=== PATIENT | female | born 1995 | race Caucasian/White ===

== ENCOUNTER 2018-07-18 02:40 | Emergency (ER) | payer OTHER, SELFPAY ==
--- NOTE | 2018-07-18 02:42 | ED.WOUNDLAC ---
HPI - Wound/Laceration General Chief Complaint: Wound/Laceration Stated Complaint: laceration to left wrist Time Seen by Provider: 07/18/18 02:42 Source: patient Mode of arrival: ambulatory Limitations: no limitations History of Present Illness HPI narrative: 23-year-old female here for evaluation cut to her left wrist. Patient states that just prior to arrival she was working some wood with a knife when it slipped and cut her left wrist. Has not done anything for prior to arrival. States she is up-to-date on her tetanus. Related Data Home Medications Medication Instructions Recorded Confirmed trazodone 50 mg PO HS #0 03/02/17 Wellbutrin XL 07/18/18 Previous Rx's Medication Instructions Recorded bupropion HCl 100 mg PO TID #90 tab 12/20/16 hydroxyzine pamoate [Vistaril] 25 mg PO Q8HP PRN #30 cap 12/20/16 Allergies Allergy/AdvReac Type Severity Reaction Status Date / Time lamotrigine [From LAMICTAL] Allergy Intermediate RASH Verified 07/18/18 02:53 strawberry [STRAWBERRY] Allergy Mild HIVES Verified 07/18/18 02:53 hydrocodone [HYDROCODONE] Allergy Unknown Verified 07/18/18 02:53 venom-honey bee Allergy Unknown CHILD Verified 07/18/18 02:53 [BEE VENOM (HONEY BEE)] REACTION, NOT SURE unknown antipsychotic med Allergy Severe not sure Uncoded 07/18/18 02:53 Review of Systems Constitutional Denies fever(s) Musculoskeletal Comments: No left hand left wrist or left elbow pain Integumentary/Breasts Comments: Cut to her left wrist Neurologic Comments: No numbness or tingling left wrist Hematologic/Lymphatic Denies easy bleeding and Denies easy bruising [facility] Medical History PCOS (polycystic ovarian syndrome) (Acute) Surgical History No pertinent past surgical history (Acute) Family History Father ADHD (attention deficit hyperactivity disorder) Mother Asthma Migraines Depression Grandmother Paranoid schizophrenia Social History Smoking Status: Current every day smoker Exam Initial Vital Signs Initial Vital Signs: Vital Signs Temperature 97.8 F 07/18/18 02:49 Pulse Rate 92 H 07/18/18 02:49 Respiratory Rate 18 07/18/18 02:49 Blood Pressure 130/74 07/18/18 02:49 Pulse Oximetry 100 07/18/18 02:49 Const General: cooperative, in distress and anxious Orientation: alert, awake and oriented x3 HENMT Head: normal to inspection and normocephalic Resp Effort & Inspection: normal respiratory effort Cardio Pulses: radial pulses present on the left Skin Other: Patient with a 0.25-0.5 cm cut to the volar aspect of her left wrist just proximal to the joint. No active bleeding. Neuro General: alert, awake and oriented x3 Sensory Exam: no sensory deficits noted Extrem Other: Left hand, left wrist full range of motion Psych Appearance: grossly normal and well kempt Procedures Laceration Repair Laceration 1: Site: upper extremity Side (If applicable): left Size (cm): 0.5 Description: linear Depth: simple, single layer Pre-repair: wound explored, irrigated extensively and deep structures intact Skin layer closed with: other (Dermabond and Steri-Strips) Course Vital Signs - 8 hr 07/18/18 02:49 Temperature 97.8 F Pulse Rate 92 H Respiratory Rate 18 Blood Pressure 130/74 Pulse Oximetry 100 MDM - Wound/Laceration MDM Narrative Medical decision making narrative: Patient is neurovascularly intact. The cut to the volar aspect of her wrist is superficial. No active bleeding. We did discuss options to include stitches versus Dermabond and Steri-Strips. We opted for Dermabond and Steri-Strips. She was given care instructions. She was given return precautions. No indication for antibiotics. Will hold on x-rays. Patient expressed understanding and agreement with plan. Discharge Plan Departure Patient Disposition: Home Clinical Impression: Laceration Instructions: DI for Laceration Repair Steri-Strips, DI for Laceration Repair With Dermabond Activity Restrictions/Additional Instructions: Keep the area clean and dry however you can shower and wash her hands like normal. Return to the emergency department for any new or worsening symptoms Prescriptions: No Action bupropion HCl 100 MG tablet 100 mg PO TID Qty: 90 RF: 2 hydroxyzine pamoate [Vistaril] 25 MG capsule 25 mg PO Q8HP PRNQty: 30 RF: 1 trazodone 50 MG tablet 50 mg PO HS Qty: 0 RF: 0 Wellbutrin XL RF: 0
[2018-07-18 02:49] VITALS: BP 130/74; PULSE 92; RESP 18; TEMP 36.6; O2SAT 100; BMI 21.1
--- NOTE | 2018-07-18 03:09 | PC.NURSE ---
laceration repaired by Dr Trujillo with dermabond and steristrips and pt tolerated well.
== END 2018-07-18 03:09 | disposition home or self-care (01) ==
PROVIDERS: Emergency Provider Emergency Medicine; Family Provider Family Medicine
DX: S61.512A Laceration without foreign body of left wrist, initial encounter (principal); W26.0XXA Contact with knife, initial encounter
CPT/HCPCS: 12001; 99282; 99283

== ENCOUNTER 2018-07-18 15:09 | Emergency (ER) | payer SELFPAY ==
[2018-07-18 15:15] VITALS: BP 115/78; PULSE 102; RESP 17; TEMP 36.8; O2SAT 98; BMI 21.9
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
--- NOTE | 2018-07-18 16:06 | PC.NURSE ---
patient came out of her room saying I have to go now We tried to get her to sign but she wouldn't wait.
== END 2018-07-18 16:10 | disposition left against medical advice (07) ==
PROVIDERS: Emergency Provider Internal Medicine; Family Provider Family Medicine
DX: S61.512A Laceration without foreign body of left wrist, initial encounter (principal)
CPT/HCPCS: 99283

== ENCOUNTER → 2018-09-23 16:44 | Outpatient (CLI) | payer OTHER, SELFPAY | PROVIDERS: Family Provider Family Medicine; Visit Provider Physician Assistant | DX: N39.0 Urinary tract infection, site not specified (principal) | CPT/HCPCS: 87077; 87086; 87186 ==

== ENCOUNTER 2019-08-24 18:46 | Emergency (ER) | payer OTHER, SELFPAY ==
[2019-08-24 18:48] VITALS: BP 120/65; PULSE 119; RESP 18; TEMP 37.2; O2SAT 100
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
== END 2019-08-24 19:45 | disposition home or self-care (01) ==
PROVIDERS: Emergency Provider Emergency Medicine; Family Provider Family Medicine
CPT/HCPCS: 99281

== ENCOUNTER 2020-05-09 09:34 | Emergency (ER) | payer OTHER, SELFPAY ==
[2020-05-09 09:38] VITALS: BP 122/79; PULSE 113; RESP 15; TEMP 36.6; O2SAT 97; BMI 21.1
--- NOTE | 2020-05-09 09:42 | ED_ITS ---
HPI - General Adult General Chief complaint: Skin/Abscess/Foreign Body Stated complaint: Found lump on left breast and few more concerns Time Seen by Provider: 05/09/20 09:36 Source: patient Mode of arrival: Ambulatory Limitations: no limitations History of Present Illness HPI narrative: 24-year-old female smoker with history of asthma presents with a few complaints including a painless lump she just noticed on her left breast as well as a painless lump on the left side of her neck. Additionally, she states she became quite anxious a few days ago when she had the beginnings of an asthma attack and did not have her inhaler so she requests a refill on this. Patient denies any recent street drugs but does have a history of smoking methamphetamines. She does sh she denies any skin change overlying the lump in her left breast. She denies any nipple discharge or injury. Ave her head and wears awake and has some areas of irritated skin that of cause scabs that she is picking at that on the left side of her scalp. She denies any ear pain or sore throat. She has had no fever or chills. Onset (ago): day(s) Location: head and chest Radiation: non-radiation Severity: mild Relieving factors: none Exacerbating factors: none Associated symptoms: denies other symptoms Treatments prior to arrival: none Related Data Previous Rx's Medication Instructions Recorded albuterol sulfate 90 mcg/actuation 2 puff INHALATION Q6H PRN #8 gram 09/23/18 aerosol inhaler beclomethasone dipropionate 80 1 puff INHALATION BID #10.6 gram 09/23/18 mcg/actuation HFA breath activated aerosol inhalational spacing device #1 each 09/23/18 albuterol sulfate 2 inh INHALATION Q4H PRN #1 each 05/09/20 doxycycline hyclate 100 mg PO BID #20 tab 05/09/20 Allergies Allergy/AdvReac Type Severity Reaction Status Date / Time lamotrigine [From LAMICTAL] Allergy Intermediate RASH Verified 05/09/20 10:00 strawberry [STRAWBERRY] Allergy Mild HIVES Verified 05/09/20 10:00 hydrocodone [HYDROCODONE] Allergy Unknown Verified 05/09/20 10:00 venom-honey bee Allergy Unknown CHILD Verified 05/09/20 10:00 [BEE VENOM (HONEY BEE)] REACTION, NOT SURE unknown antipsychotic med Allergy Severe not sure Uncoded 07/18/18 15:15 Review of Systems Constitutional Constitutional: Denies chills, Denies fatigue, Denies fever(s), Denies frequent falls, Denies lethargy and Denies weakness Eyes Eyes: Denies change in vision, Denies eye discharge, Denies irritation and Denies loss of vision ENT Ears, Nose, Mouth, and Throat: Denies change in voice, Denies dizziness, Denies neck pain, Denies sore throat and Denies throat swelling Comments: lump on neck Cardiovascular Cardiovascular: Denies chest pain, Denies irregular heart rhythm, Denies lightheadedness, Denies palpitations, Denies dyspnea, Denies dyspnea on exertion and Denies orthopnea Respiratory Respiratory: Denies cough, Denies dyspnea, Denies dyspnea on exertion and Denies wheezing Gastrointestinal Gastrointestinal: Denies abdominal pain, Denies change in bowel habits, Denies diarrhea, Denies nausea and Denies vomiting Musculoskeletal Musculoskeletal: Denies neck pain and Denies numbness Integumentary/Breasts Skin/Breast: Reports breast mass, Denies pruritus, Denies erythema, Denies rash and Denies wounds Neurologic Neurologic: Denies behavioral changes, Denies confusion, Denies dizziness, Denies frequent falls, Denies loss of vision, Denies numbness and Denies weakness Psychiatric Psychiatric: Denies anxiety, Denies behavioral changes, Denies confusion, Denies depression, Denies homicidal ideation and Denies suicidal ideation Endocrine Endocrine: Denies fatigue, Denies flushing and Denies palpitations Hematologic/Lymphatic Hematologic/Lymphatic: Denies easy bruising Allergic/Immunologic Allergic/Immunologic: Denies urticaria, Denies throat swelling and Denies wheezing Patient History Medical History PCOS (polycystic ovarian syndrome) (Acute) Surgical History No pertinent past surgical history (Acute) Family History Father ADHD (attention deficit hyperactivity disorder) Mother Asthma Migraines Depression Grandmother Paranoid schizophrenia Social History Smoking Status: Current every day smoker Smoking Status: Current every day smoker alcohol intake frequency: a few times a week Substance Use Type: marijuana Exam Narrative Exam Narrative: GENERAL: [24] year old patient appears stated age. Well- nourished, well-developed patient, in mild distress. HEAD: Atraumatic. Normocephalic. Shaves head, few excoriations noted, on left side of scalp. No drainage. No induration EYES: Pupils equal round and reactive. Extraocular motions intact. No scleral icterus. No injection or drainage. ENT: Nose without bleeding, purulent drainage. Throat without erythema, tonsillar hypertrophy or exudate. Airway patent. NECK: Trachea midline. Small freely moveable left sided posterior cervical node. No erythema, no induration or fluctuance. BREAST: Examined with patient permission and female nurse director of spa and guest experience at the bedside. Small freely moveable lump inferior and lateral to areola. No nipple drainage or skin change CARDIOVASCULAR: Regular rate and rhythm without murmurs, gallops, or rubs. RESPIRATORY: Clear to auscultation. Breath sounds equal bilaterally. No wheezes, rales, or rhonchi. GASTROINTESTINAL: Abdomen soft, non-tender, nondistended. EXTREMITIES: No edema or joint tenderness. BACK: Nontender without deformity or crepitance. No flank tenderness. NEURO: AOx3. SKIN: No rash or erythema of visible areas Course Course Course Narrative: likely reactive lymphadenopathy from mild scalp folliculitis, other considerations include infected node, lymphoma or other. Extensive discussion with patient regadring need for follow up and establishing with PCP to pursue mammogram etc. Return precautions given. Questions answered to her apparent satisfaction. Discharge Plan Departure Patient Disposition: Home Clinical Impression: Breast lump in female, Folliculitis Discharge Date/Time: 05/09/20 10:02 Instructions: Fibrocystic Breast Changes: Lumps That Are Normal, DI for Breast Mass -- Uncertain Cause Activity Restrictions/Additional Instructions: *You have been diagnosed with [mild scalp folliculitis with associated posterior cervical lymphadenopathy, nontender left breast lump] *What to do: *Take medications as directed: electronically transmitted to [facility] at your request *Follow up with your primary care provider in 2-3 days, call for an appointment. Let them know you were seen in the Emergency Department and that we ask that you be seen in follow up *Return to ER if you should have any new, worsening or concerning symptoms Prescriptions: New doxycycline hyclate 100 mg tablet 100 mg PO BID Qty: 20 RF: 0 albuterol sulfate 90 mcg/actuation aerosol powdr breath activated 2 inh INHALATION Q4H PRN (Reason: shortness of breath or wheezing) Qty: 1 RF: 0 No Action albuterol sulfate [Ventolin HFA] 90 mcg/actuation HFA aerosol inhaler 2 puff INHALATION Q6H PRN (Reason: shortness of breath or wheezing) Qty: 8 RF: 2 (DME) inhalational spacing device [Aerochamber Plus Flow-Vu] spacer See Dose Instructions .ROUTE .MEDSUPPLY Qty: 1 RF: 0 beclomethasone dipropionate [Qvar RediHaler] 80 mcg/actuation HFA aerosol breath activated 1 puff INHALATION BID Qty: 10.6 RF: 0 Referrals: [facility] [Outside]
== END 2020-05-09 10:02 | disposition home or self-care (01) ==
PROVIDERS: Emergency Provider Emergency Medicine; Family Provider Family Medicine; Referring Provider Emergency Medicine
DX: N63.0 Unspecified lump in unspecified breast (principal); L73.9 Follicular disorder, unspecified
CPT/HCPCS: 99281

== ENCOUNTER 2020-05-23 23:59 | Emergency (ER) | payer OTHER, SELFPAY ==
[2020-05-24 00:05] VITALS: BP 128/61; PULSE 119; RESP 22; TEMP 36.9; O2SAT 98; BMI 21.9
--- NOTE | 2020-05-24 00:14 | ED.ABDPAIN ---
HPI - Abdominal Pain General Chief Complaint: Abdominal Pain Stated Complaint: ate bad food/thinks has worms Time Seen by Provider: 05/23/20 23:59 Source: patient Mode of arrival: Ambulatory Limitations: no limitations History of Present Illness HPI narrative: 24F smoker with history of smoking marijuana presents with the chief complaint of worms in her stool. She states she has been constipated lately and had a BM yesterday in an outhouse, but finally took a shit in a real toilet today at the local grocery store and states she saw worms in it. She states she can feel them wiggling in her belly and has been eating pumpkin seeds to make them come out. She denies runny nose, sore throat or fever. She states she frequently as a mild cough because of smoking marijuana. She denies any changes in her medication or diet but is concerned she may have eaten something given the presence of worms. She denies any blood in her stool. She states that she was at an outside facility a few days ago but is unclear about what they did or why she was there. She denies provocation or palliation of her abdominal discomfort but states she can feel it moving around and is convinced that is the worms. She denies vaginal bleeding or discharge. MD complaint: abdominal pain Onset (ago): day(s) Pain Consistency: intermittent Location: diffuse Severity: mild Quality: cramping Radiation: none Relieving factors: nothing Exacerbating factors: nothing Associated symptoms: denies other symptoms Related Data Previous Rx's Medication Instructions Recorded albuterol sulfate 90 mcg/actuation 2 puff INHALATION Q6H PRN #8 gram 09/23/18 aerosol inhaler beclomethasone dipropionate 80 1 puff INHALATION BID #10.6 gram 09/23/18 mcg/actuation HFA breath activated aerosol inhalational spacing device #1 each 09/23/18 albuterol sulfate 2 inh INHALATION Q4H PRN #1 each 05/09/20 doxycycline hyclate 100 mg PO BID #20 tab 05/09/20 albendazole 400 mg PO BID 5 Days #20 tab 05/24/20 Allergies Allergy/AdvReac Type Severity Reaction Status Date / Time lamotrigine [From LAMICTAL] Allergy Intermediate RASH Verified 05/09/20 10:00 strawberry [STRAWBERRY] Allergy Mild HIVES Verified 05/09/20 10:00 hydrocodone [HYDROCODONE] Allergy Unknown Verified 05/09/20 10:00 venom-honey bee Allergy Unknown CHILD Verified 05/09/20 10:00 [BEE VENOM (HONEY BEE)] REACTION, NOT SURE unknown antipsychotic med Allergy Severe not sure Uncoded 07/18/18 15:15 Review of Systems Constitutional Constitutional: Denies chills, Denies fatigue, Denies fever(s), Denies frequent falls, Denies lethargy and Denies weakness Eyes Eyes: Denies change in vision, Denies eye discharge, Denies irritation and Denies loss of vision ENT Ears, Nose, Mouth, and Throat: Denies change in voice, Denies dizziness, Denies neck pain, Denies sore throat and Denies throat swelling Cardiovascular Cardiovascular: Denies chest pain, Denies irregular heart rhythm, Denies lightheadedness, Denies palpitations, Denies dyspnea, Denies dyspnea on exertion and Denies orthopnea Respiratory Respiratory: Denies cough, Denies dyspnea, Denies dyspnea on exertion and Denies wheezing Gastrointestinal Gastrointestinal: Reports abdominal pain, Denies change in bowel habits, Denies diarrhea, Denies nausea and Denies vomiting Comments: abnormal stool Musculoskeletal Musculoskeletal: Denies neck pain and Denies numbness Integumentary/Breasts Skin/Breast: Denies pruritus, Denies erythema, Denies rash and Denies wounds Neurologic Neurologic: Denies behavioral changes, Denies confusion, Denies dizziness, Denies frequent falls, Denies loss of vision, Denies numbness and Denies weakness Psychiatric Psychiatric: Denies anxiety, Denies behavioral changes, Denies confusion, Denies depression, Denies homicidal ideation and Denies suicidal ideation Endocrine Endocrine: Denies fatigue, Denies flushing and Denies palpitations Hematologic/Lymphatic Hematologic/Lymphatic: Denies easy bruising Allergic/Immunologic Allergic/Immunologic: Denies urticaria, Denies throat swelling and Denies wheezing Patient History Medical History (Updated 05/24/20 @ 02:48 by Dc Gotti DO) PCOS (polycystic ovarian syndrome) (Acute) Surgical History No pertinent past surgical history (Acute) Family History Father ADHD (attention deficit hyperactivity disorder) Mother Asthma Migraines Depression Grandmother Paranoid schizophrenia Social History Smoking Status: Current every day smoker Smoking Status: Current every day smoker alcohol intake frequency: a few times a week Substance Use Type: marijuana Exam Narrative Exam Narrative: GENERAL: [24] year old patient appears stated age. Well-nourished, well-developed patient, in mild distress. HEAD: Atraumatic. Normocephalic. EYES: Pupils equal round and reactive. Extraocular motions intact. No scleral icterus. No injection or drainage. ENT: Nose without bleeding, purulent drainage. Throat without erythema, tonsillar hypertrophy or exudate. Airway patent. NECK: Trachea midline. Non tender CARDIOVASCULAR: tachycardic but regular rhythm without murmurs, gallops, or rubs. RESPIRATORY: Clear to auscultation. Breath sounds equal bilaterally. No wheezes, rales, or rhonchi. GASTROINTESTINAL: Abdomen soft, non-tender, nondistended. EXTREMITIES: No edema or joint tenderness. BACK: Nontender without deformity or crepitance. No flank tenderness. NEURO: AOx3. SKIN: No rash or erythema of visible areas Initial Vital Signs Initial Vital Signs: Vital Signs Temperature 98.4 F 05/24/20 00:05 Pulse Rate 119 H 05/24/20 00:05 Respiratory Rate 22 05/24/20 00:05 Blood Pressure 128/61 05/24/20 00:05 Pulse Oximetry 98 05/24/20 00:05 Course Course Course Narrative: patient with reassuring exam. SHe was given multiple opportunities, but was unable to provide a stool sample. Her vitals improved and HR dropped down to 80s/90s. Orders Ordered: ED Orders 05/24/20 02:00 Urine Drug Screen, Rapid Stat Vital Signs Vital signs: Vital Signs - 8 hr 05/24/20 00:05 05/24/20 03:23 Temperature 98.4 F Pulse Rate 119 H 94 H Respiratory Rate 22 16 Blood Pressure 128/61 103/65 Pulse Oximetry 98 100 MDM - Abdominal Pain Lab Data Labs: Lab Results 05/24/20 Range/Units 02:00 U Opiates 300ng/mL cut Positive H (Negative) Ur Oxycodone Screen Negative (Negative) Urine Methadone Screen Negative (Negative) Ur Barbiturates Screen Negative (Negative) U Tricyclic Antidepress Negative (Negative) Ur Phencyclidine Scrn Negative (Negative) Ur Amphetamines Screen Positive H (Negative) U Methamphetamines Scrn Positive H (Negative) Ur MDMA Scrn (Ecstasy) Negative (Negative) U Benzodiazepines Scrn Negative (Negative) Urine Cocaine Screen Negative (Negative) U Marijuana (THC) Screen Positive H (Negative) Point of care testing: Point of Care Testing Test Results Negative Urine Dip Bedside Urine Glucose Negative Bedside Urine Bilirubin - Negative Bedside Urine Ketone - Negative Urine Specific [place] 1.030 Bedside Urine Occult Blood - Negative Bedside Urine pH 6 Bedside Urine Protein +/- 15 Bedside Urine Nitrite - Negative Bedside Urine Leukocytes - Negative Esterase Discharge Plan Departure Patient Disposition: Home Clinical Impression: Intestinal worms Discharge Date/Time: 05/24/20 03:25 Instructions: Parasites, Intestinal (Alternative Therapy) Activity Restrictions/Additional Instructions: *You have been diagnosed with [abnormal stools, possible intestinal worms based on your report] *What to do: *Take medications as directed: Prescription sent to [facility] at your request *Follow up with your primary care provider in 2-3 days, call for an appointment. Let them know you were seen in the Emergency Department and that we ask that you be seen in follow up *Return to ER if you should have any new, worsening or concerning symptoms, such as [ ] Prescriptions: New albendazole 200 mg tablet 400 mg PO BID 5 Days Qty: 20 RF: 0 No Action albuterol sulfate [Ventolin HFA] 90 mcg/actuation HFA aerosol inhaler 2 puff INHALATION Q6H PRN (Reason: shortness of breath or wheezing) Qty: 8 RF: 2 (DME) inhalational spacing device [Aerochamber Plus Flow-Vu] spacer See Dose Instructions .ROUTE .MEDSUPPLY Qty: 1 RF: 0 beclomethasone dipropionate [Qvar RediHaler] 80 mcg/actuation HFA aerosol breath activated 1 puff INHALATION BID Qty: 10.6 RF: 0 doxycycline hyclate 100 mg tablet 100 mg PO BID Qty: 20 RF: 0 albuterol sulfate 90 mcg/actuation aerosol powdr breath activated 2 inh INHALATION Q4H PRN (Reason: shortness of breath or wheezing) Qty: 1 RF: 0
[2020-05-24 02:12] LABS: UR Morphine/Opiate cutoff 300 Positive (Negative); Ur Creatinine Normal (Normal); Ur Specific Gravity Normal (Normal); Urine Amphetamines Positive (Negative); Urine Barbiturates Negative (Negative); Urine Benzodiazepines Negative (Negative); Urine Cocaine Negative (Negative); Urine MDMA Negative (Negative); Urine Methadone Negative (Negative); Urine Methamphetamines Positive (Negative); Urine Oxycodone Negative (Negative); Urine Phencyclidine Negative (Negative); Urine Tetrahydrocannabinol Positive (Negative); Urine Tricyclic Antidepressant Negative (Negative); Urine pH Normal (Normal)
[2020-05-24 03:23] VITALS: BP 103/65; PULSE 94; RESP 16; O2SAT 100
== END 2020-05-24 03:25 | disposition home or self-care (01) ==
PROVIDERS: Emergency Provider Emergency Medicine; Family Provider Family Medicine
DX: B82.0 Intestinal helminthiasis, unspecified (principal); R10.9 Unspecified abdominal pain
CPT/HCPCS: 80305; 81003; 81025; 99282

== ENCOUNTER 2020-11-09 16:38 | Emergency (ER) | payer OTHER, MEDICAID, SELFPAY ==
[2020-11-09 16:48] VITALS: BP 141/106; PULSE 109; RESP 22; TEMP 37.3; O2SAT 100
--- NOTE | 2020-11-09 20:22 | ED.NAVMDI ---
HPI - Nausea/Vomiting/Diarrhea General Chief complaint: Nausea/Vomiting/Diarrhea Stated complaint: Thinks Tape Worm Time Seen by Provider: 11/09/20 18:10 Source: patient Mode of arrival: Ambulatory Limitations: no limitations History of Present Illness HPI Narrative: Patient is a 25-year-old female here for evaluation of multiple complaints. She initially states that she is here because over the past 24 hours she thought that she vomited up a larva. She has not had any diarrhea. There has been no recent camping or drinking untreated water. She also describes areas where she has ?pus? coming out of her body with both recent location behind her left ear. She also states that she feels like that her skin is from the tissue underneath it. Her most recent area of complaint is on her abdomen although she does admit that this is not currently happening. Related Data Previous Rx's Medication Instructions Recorded albuterol sulfate 90 mcg/actuation 2 puff INHALATION Q6H PRN #8 gram 09/23/18 aerosol inhaler beclomethasone dipropionate 80 1 puff INHALATION BID #10.6 gram 09/23/18 mcg/actuation HFA breath activated aerosol inhalational spacing device #1 each 09/23/18 albuterol sulfate 2 inh INHALATION Q4H PRN #1 each 05/09/20 doxycycline hyclate 100 mg PO BID #20 tab 05/09/20 Allergies Allergy/AdvReac Type Severity Reaction Status Date / Time lamotrigine [From LAMICTAL] Allergy Intermediate RASH Verified 05/09/20 10:00 strawberry [STRAWBERRY] Allergy Mild HIVES Verified 05/09/20 10:00 hydrocodone [HYDROCODONE] Allergy Unknown Verified 05/09/20 10:00 venom-honey bee Allergy Unknown CHILD Verified 05/09/20 10:00 [BEE VENOM (HONEY BEE)] REACTION, NOT SURE unknown antipsychotic med Allergy Severe not sure Uncoded 07/18/18 15:15 Review of Systems Constitutional Constitutional: Denies fever(s) Cardiovascular Cardiovascular: Denies chest pain and Denies dyspnea Respiratory Respiratory: Denies dyspnea Gastrointestinal Comments: See HPI Genitourinary Genitourinary: Denies dysuria Genitourinary: Denies dysuria Integumentary/Breasts Comments: See HPI Neurologic Neurologic: Denies behavioral changes Psychiatric Psychiatric: Denies behavioral changes Hematologic/Lymphatic On Anticoagulants: No Patient History Medical History PCOS (polycystic ovarian syndrome) Surgical History No pertinent past surgical history Family History Father ADHD (attention deficit hyperactivity disorder) Mother Asthma Migraines Depression Grandmother Paranoid schizophrenia Social History Smoking Status: Current every day smoker Smoking Status: Current every day smoker alcohol intake frequency: a few times a week Substance Use Type: marijuana Exam Initial Vital Signs Initial Vital Signs: Vital Signs Temperature 99.2 F 11/09/20 16:48 Pulse Rate 109 H 11/09/20 16:48 Respiratory Rate 22 11/09/20 16:48 Blood Pressure 141/106 H 11/09/20 16:48 Pulse Oximetry 100 11/09/20 16:48 Const General: cooperative and comfortable HENMT Head: normal to inspection and normocephalic Resp Effort & Inspection: normal respiratory effort Cardio Rate: tachycardic GI Inspection: non-distended Palpation: soft, No firm and No tender Skin Lesions: no lesions Rashes: no rashes Neuro General: patient alert and patient awake Speech: speech normal Extrem General: capillary refill normal Psych Appearance: disheveled Course Vital Signs Vital signs: Vital Signs - 8 hr 11/09/20 20:32 Pulse Rate 89 Respiratory Rate 16 Blood Pressure 105/58 L Pulse Oximetry 99 MDM - Nausea/Vomiting/Diarrhea MDM Narrative Medical decision making narrative: Patient did have a sample of the vomit with her. A visual inspection appears to showed no larva but does appear to be food particles. In the areas with the patient is concerned about her skin from the tissue below at high find no abnormalities. There are no signs of abscesses on her body. She does have what appears to be dried blood behind her left ear without any signs of infection. I feel no further workup is needed in the emergency department. She was given information where she could contact resources coordinator for primary provider. She was given return precautions. Discharge Plan Departure Patient Disposition: Home Clinical Impression: Nausea Instructions: DI for Nausea -- Adult Activity Restrictions/Additional Instructions: There were no findings consistent with any sort of infection on your exam today. Recommend you contact the [facility] help you establish a primary provider. Return to the emergency department for any new symptoms. Prescriptions: No Action albuterol sulfate [Ventolin HFA] 90 mcg/actuation HFA aerosol inhaler 2 puff INHALATION Q6H PRN (Reason: shortness of breath or wheezing) Qty: 8 RF: 2 (DME) inhalational spacing device [Aerochamber Plus Flow-Vu] spacer See Dose Instructions .ROUTE .MEDSUPPLY Qty: 1 RF: 0 beclomethasone dipropionate [Qvar RediHaler] 80 mcg/actuation HFA aerosol breath activated 1 puff INHALATION BID Qty: 10.6 RF: 0 doxycycline hyclate 100 mg tablet 100 mg PO BID Qty: 20 RF: 0 albuterol sulfate 90 mcg/actuation aerosol powdr breath activated 2 inh INHALATION Q4H PRN (Reason: shortness of breath or wheezing) Qty: 1 RF: 0
[2020-11-09 20:32] VITALS: BP 105/58; PULSE 89; RESP 16; O2SAT 99
== END 2020-11-09 20:40 | disposition home or self-care (01) ==
PROVIDERS: Emergency Provider Emergency Medicine; Family Provider Family Medicine
DX: R11.0 Nausea (principal); R00.0 Tachycardia, unspecified; E28.2 Polycystic ovarian syndrome
CPT/HCPCS: 99281

== ENCOUNTER 2020-12-28 12:10 | Emergency (ER) | payer OTHER, MEDICAID, SELFPAY ==
--- NOTE | 2020-12-28 12:22 | DI.RAD.S_ITS ---
PROCEDURE: XR CHEST 1V INDICATIONS: Productive cough TECHNIQUE: One view of the chest was acquired. COMPARISON: [facility], , CHEST 2 VIEW, 03/31/2015, 13:19. FINDINGS: Surgical changes and devices: None. Lungs and pleura: Lungs are clear. No pleural effusions or pneumothorax. Mediastinum: Mediastinal contours appear normal. Heart size is normal. Bones and chest wall: No suspicious bony lesions. Overlying soft tissues appear unremarkable. IMPRESSION: No acute process. Dictated by: Kieran Ratliff M.D. on 12/28/2020 at 12:00 Approved by: Kieran Ratliff M.D. on 12/28/2020 at 12:00
[2020-12-28 12:35] VITALS: BP 115/61; PULSE 83; RESP 18; TEMP 36.8; O2SAT 100; BMI 21.9
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
== END 2020-12-28 13:17 | disposition home or self-care (01) ==
PROVIDERS: Emergency Provider Emergency Medicine; Family Provider Family Medicine
DX: R05 Cough (principal)
CPT/HCPCS: 71045; 99281; 99283

== ENCOUNTER 2021-01-12 01:45 | Emergency (ER) | payer OTHER, MEDICAID, SELFPAY ==
[2021-01-12 02:08] VITALS: BP 130/80; PULSE 86; RESP 22; TEMP 37; O2SAT 96; BMI 22.7
--- NOTE | 2021-01-12 02:24 | PC.NURSE ---
Pt reports feeling bugs crawling under her skin and states she used to have pinworms and that maybe these are related and also that she had some abcesses on the back of her neck that the bugs might have come from.
[2021-01-12 02:42] LABS: UR Morphine/Opiate cutoff 300 Positive (Negative); Ur Creatinine 50 (Normal); Urine Amphetamines Positive (Negative); Urine Cocaine Negative (Negative); Urine Methamphetamines Positive (Negative); Urine Phencyclidine Negative (Negative); Urine Tetrahydrocannabinol Negative (Negative); Urine pH 5 (Normal)
[2021-01-12 02:43] LABS: Urine Barbiturates Negative (Negative); Urine Benzodiazepines Negative (Negative); Urine MDMA Positive (Negative); Urine Methadone Negative (Negative); Urine Oxycodone Negative (Negative); Urine Tricyclic Antidepressant Negative (Negative)
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
== END 2021-01-12 03:36 | disposition home or self-care (01) ==
PROVIDERS: Emergency Provider Emergency Medicine; Family Provider Family Medicine
DX: F15.959 Other stimulant use, unspecified with stimulant-induced psychotic disorder, unspecified (principal); F40.218 Other animal type phobia
CPT/HCPCS: 80305; 99281; 99282

== ENCOUNTER 2021-01-26 11:07 | Emergency (ER) | payer OTHER, MEDICAID, SELFPAY ==
[2021-01-26 11:12] VITALS: BP 110/81; PULSE 110; RESP 24; TEMP 36.7; O2SAT 99; BMI 21.6
--- NOTE | 2021-01-26 11:17 | DI.RAD.S_ITS ---
PROCEDURE: XR CHEST 1V INDICATIONS: chest pain TECHNIQUE: One view of the chest was acquired. COMPARISON: [facility], , XR CHEST 1V, 12/28/2020, 12:32. [facility], , CHEST 2 VIEW, 03/31/2015, 13:19. FINDINGS: Surgical changes and devices: None. Lungs and pleura: Lungs are clear. No pleural effusions or pneumothorax. Mediastinum: Mediastinal contours appear normal. Heart size is normal. Bones and chest wall: No suspicious bony lesions. Overlying soft tissues appear unremarkable. IMPRESSION: Normal for age, source of current chest pain symptoms is not seen. Dictated by: Deric Wahl M.D. on 01/26/2021 at 11:56 Approved by: Deric Wahl M.D. on 01/26/2021 at 11:57
[2021-01-26 11:52] LABS: Prothrombin Time 11.7 SECONDS (10.1-12.7)
[2021-01-26 11:54] LABS: Add Manual Diff / Slide Review NO; Basophils Absolute Auto 100 /uL (0-100); Basophils Percent Auto 0.7 % (0-2); Eosinophils Absolute Auto 300 /uL (0-450); Eosinophils Percent Auto 2.8 % (2-4); Hematocrit 38.9 % (36-46); Lymphocytes Absolute Auto 2100 /uL (1100-4500); Lymphocytes Percent Auto 21.3 % (25-40); Mean Corpuscular HGB Conc 33.3 % (30-36); Mean Corpuscular Hemoglobin 30.5 PG (26-34); Mean Corpuscular Volume 91.4 fL (80-100); Monocytes Absolute Auto 600 /uL (0-900); Monocytes Percent Auto 5.9 % (3-14); Neutrophils Absolute Auto 6900 /uL (1500-7000); Neutrophils Percent Auto 69.3 % (50-75); Platelet Count 366 X10^3/uL (150-400); Red Blood Cell Count 4.26 X10^6/uL (4.0-5.2); Red Cell Distribution Width 13.6 % (11.6-14.8); White Blood Cell Count 9.9 X10^3/uL (4.5-11.0)
[2021-01-26 11:55] LABS: PTT Partial Thromboplastin Tim 35 SECONDS (26.4-36.2)
[2021-01-26 11:57] LABS: Alanine Aminotransferase 18 IU/L (<35); Albumin 4.4 g/dL (3.5-5.0); Albumin Globulin Ratio 1.6 (1.0-2.8); Alkaline Phosphatase 78 U/L (38-126); Aspartate Aminotransferase 23 IU/L (14-36); BUN Creatinine Ratio 20.3 (6-22); Bilirubin Total 0.3 mg/dL (0.2-1.3); Blood Urea Nitrogen 13 mg/dL (7-17); Carbon Dioxide 27 mmol/L (22-32); Chloride 103 mmol/L (98-107); Creatine Kinase 153 U/L (30-135); Estimated Glomerular Filt Rate > 60.0 mL/min (>60); Globulin 2.8 g/dL (1.7-4.1); Glucose 130 mg/dL (70-100); HEMOLYSIS < 15 (0-50); Lipase 39 U/L (23-300); Potassium 4.1 mmol/L (3.4-5.1); Sodium 136 mmol/L (137-145); Total Protein 7.2 g/dL (6.3-8.2)
[2021-01-26 12:09] LABS: Troponin I < 0.012 ng/mL (0.01-0.034)
[2021-01-26 12:12] LABS: CKMB % Relative Index 1.5 % (1.5-5.0); Creatine Kinase MB 2.34 ng/mL (<2.37)
[2021-01-26] MEDS: KETOROLAC 60 MG/2 ML VIAL 30 MG IM (12:53)
[2021-01-26] MEDS: ONDANSETRON 4 MG ODT SL (12:53)
[2021-01-26] MEDS: ACETAMINOPHEN 325 MG TABLET 650 MG PO (12:53)
[2021-01-26 13:05] LABS: COVID19 -Nasal RAPID Negative (Negative)
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
[2021-01-26 14:05] LABS: UR Morphine/Opiate cutoff 300 Positive (Negative); Ur Creatinine Normal (Normal); Ur Specific Gravity Normal (Normal); Urine Amphetamines Positive (Negative); Urine Barbiturates Negative (Negative); Urine Benzodiazepines Negative (Negative); Urine Cocaine Negative (Negative); Urine MDMA Negative (Negative); Urine Methadone Negative (Negative); Urine Methamphetamines Positive (Negative); Urine Oxycodone Negative (Negative); Urine Phencyclidine Negative (Negative); Urine Tetrahydrocannabinol Negative (Negative); Urine Tricyclic Antidepressant Negative (Negative); Urine pH Normal (Normal)
[2021-01-26] MEDS: MAG HYDROX/ALUMINUM/SIMETH SUS 20 ML, LIDOCAINE VISCOUS 2% 15 ML PO (14:29)
[2021-01-26 14:36] LABS: D Dimer < 200 ng/mL (<230)
[2021-01-26 14:45] VITALS: BP 128/84; PULSE 74; RESP 16; O2SAT 100
== END 2021-01-26 14:58 | disposition home or self-care (01) ==
PROVIDERS: Emergency Medicine; Emergency Provider Nurse Practitioner Family; Family Provider Family Medicine
DX: M94.0 Chondrocostal junction syndrome [Tietze] (principal)
CPT/HCPCS: 36415; 71045; 80053; 80305; 81003; 81025; 82550; 82553; 83690; 83735; 84484; 85025; 85379; 85610; 85730; 87635; 93005; 96372; 99284; C9803; J1885

== ENCOUNTER → 2021-02-07 16:09 | Outpatient (CLI) | payer OTHER, MEDICAID, SELFPAY | PROVIDERS: Family Provider Family Medicine; Visit Provider Physician Assistant | DX: T14.8XXA Other injury of unspecified body region, initial encounter (principal) | CPT/HCPCS: 87070; 87075; 87077; 87147; 87186; 87205 ==

== ENCOUNTER 2021-02-13 19:49 | Emergency (ER) | payer OTHER, MEDICAID, SELFPAY ==
[2021-02-13 19:56] VITALS: PULSE 122; RESP 19; TEMP 36.6; O2SAT 98; BMI 24.3
--- NOTE | 2021-02-13 20:01 | DI.RAD.S_ITS ---
PROCEDURE: XR CHEST 1V INDICATIONS: chest pain TECHNIQUE: One view of the chest was acquired. COMPARISON: [facility], CR, XR CHEST 1V, 01/26/2021, 11:34. [facility], CR, XR CHEST 1V, 12/28/2020, 12:32. FINDINGS: Surgical changes and devices: None. Lungs and pleura: Lungs are clear. No pleural effusions or pneumothorax. Mediastinum: Mediastinal contours appear normal. Heart size is normal. Bones and chest wall: No suspicious bony lesions. Overlying soft tissues appear unremarkable. IMPRESSION: No acute cardiopulmonary abnormality. Dictated by: Taurus Egan M.D. on 02/13/2021 at 22:21 Approved by: Taurus Egan M.D. on 02/13/2021 at 22:22
[2021-02-13 20:27] LABS: Add Manual Diff / Slide Review NO; Basophils Absolute Auto 100 /uL (0-100); Basophils Percent Auto 0.7 % (0-2); Eosinophils Absolute Auto 400 /uL (0-450); Hematocrit 37.3 % (36-46); Hemoglobin 12.7 g/dL (12.0-16.0); Lymphocytes Absolute Auto 2500 /uL (1100-4500); Lymphocytes Percent Auto 32.8 % (25-40); Mean Corpuscular Hemoglobin 31.2 PG (26-34); Mean Corpuscular Volume 91.7 fL (80-100); Monocytes Absolute Auto 600 /uL (0-900); Monocytes Percent Auto 7.9 % (3-14); Neutrophils Absolute Auto 4000 /uL (1500-7000); Neutrophils Percent Auto 53.6 % (50-75); Platelet Count 305 X10^3/uL (150-400); Red Blood Cell Count 4.07 X10^6/uL (4.0-5.2); Red Cell Distribution Width 13.3 % (11.6-14.8); White Blood Cell Count 7.5 X10^3/uL (4.5-11.0)
[2021-02-13 20:32] LABS: Alanine Aminotransferase 16 IU/L (<35); Albumin 4.3 g/dL (3.5-5.0); Albumin Globulin Ratio 1.6 (1.0-2.8); Alkaline Phosphatase 62 U/L (38-126); Aspartate Aminotransferase 26 IU/L (14-36); BUN Creatinine Ratio 18.2 (6-22); Bilirubin Total 0.2 mg/dL (0.2-1.3); Blood Urea Nitrogen 14 mg/dL (7-17); Calcium 9.4 mg/dL (8.4-10.2); Carbon Dioxide 24 mmol/L (22-32); Chloride 105 mmol/L (98-107); Creatine Kinase 245 U/L (30-135); Estimated Glomerular Filt Rate > 60.0 mL/min (>60); Globulin 2.7 g/dL (1.7-4.1); Glucose 113 mg/dL (70-100); HEMOLYSIS < 15 (0-50); Lipase 38 U/L (23-300); Potassium 3.9 mmol/L (3.4-5.1); Sodium 138 mmol/L (137-145)
[2021-02-13 20:36] VITALS: BP 118/76; PULSE 114; RESP 20; TEMP 36.9; O2SAT 100
[2021-02-13 20:43] LABS: Troponin I < 0.012 ng/mL (0.01-0.034)
[2021-02-13 20:47] LABS: CKMB % Relative Index 1.5 % (1.5-5.0); Creatine Kinase MB 3.79 ng/mL (<2.37)
[2021-02-13 20:59] LABS: PTT Partial Thromboplastin Tim 36 SECONDS (26.4-36.2)
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
[2021-02-13 21:45] VITALS: BP 118/76; PULSE 109; RESP 16; O2SAT 100
--- NOTE | 2021-02-13 22:02 | PC.NURSE ---
patient states that she is having intermittent chest pain that is lessened when pressing on her chest. She states that she feels like she has worms in her chest. She states that she is passing white substance in her stool, eyes, and vomit and is sluffing it in her bath water. Dad has sample at bedside. She stated that earlier today she had a faint heart beat and she could hear it with her stethoscope. She states that her urine has had a foul oder but denies UTI symptoms. She also states that she is having foul smelling burps. She is tender to touch in her right upper quadrant and left upper quadrant. She is passing stool normally.
[2021-02-14] MEDS: KETOROLAC 60 MG/2 ML VIAL 30 MG IM (00:01)
[2021-02-14 00:08] VITALS: BP 120/70; PULSE 92; RESP 16; O2SAT 100
== END 2021-02-14 00:08 | disposition home or self-care (01) ==
PROVIDERS: Emergency Provider Emergency Medicine; Family Provider Family Medicine
DX: M94.0 Chondrocostal junction syndrome [Tietze] (principal); F15.10 Other stimulant abuse, uncomplicated
CPT/HCPCS: 36415; 71045; 80053; 81003; 82550; 82553; 83690; 84484; 85025; 85610; 85730; 93005; 93010; 96372; 99284; J1885

== ENCOUNTER → 2021-05-18 12:22 | Outpatient (CLI) | payer OTHER, MEDICAID, SELFPAY | PROVIDERS: Family Provider Family Medicine; PCP Family Medicine; Referring Provider Family Medicine; Visit Provider Family Medicine | DX: R19.5 Other fecal abnormalities (principal) | CPT/HCPCS: 87177; 87329 ==